=== PATIENT | male | born 1975 | race Caucasian/White ===

== ENCOUNTER 2024-01-31 05:24 | Emergency (ER) | payer BC, SELFPAY ==
--- NOTE | ~2024-01-31 | CT_ITS ---
EXAMINATION: CT abdomen pelvis wo con DATE: 01/31/2024 06:52 INDICATION: Right flank pain. TECHNIQUE: Computed tomography (CT) of the abdomen and pelvis was performed without intravenous contr ast. Automated exposure control and iterative reconstruction technique were employed. The dose-length product was 503.05 mGy-cm. COMPARISON: CT abdomen and pelvis 07/26/2012 FINDINGS: The visualized portions of the lung bases demonstrate mild atelectasis. No pleural effusion . The heart size is normal. There are coronary artery calcifications. No pericardial effusion. The li anette, gallbladder, spleen, pancreas, adrenal glands, and left kidney are normal. There is a 2 mm stone in right kidney. There is mild right hydronephrosis and proximal hydroureter. There is a 3 mm stone in proximal right ureter. The prostate is moderately enlarged. There is diverticulosis of the colon w ithout evidence of diverticulitis. There are no dilated loops of bowel. The appendix is normal. There is a small sliding hiatal hernia. There are no pathologically enlarged lymph nodes. There is no free intraperitoneal fluid. There is severe lower lumbar spondylosis. IMPRESSION: 1. 3 mm stone in proximal right ureter with mild right hydronephrosis and proximal hydroureter. 2. 2 mm nonobstructing right kidney stone. Reviewed, dictated and finalized at location A. IMPRESSION: 1. 3 mm stone in proximal right ureter with mild right hydronephrosis and proxi mal hydroureter. 2. 2 mm nonobstructing right kidney stone.
[2024-01-31 05:26] VITALS: BP 165/94; PULSE 59; RESP 20; TEMP 36.4; O2SAT 100
[2024-01-31 06:16] LABS: Basophils Percent Auto 0.5 % (0.2-1.2); Eosinophils Absolute Auto 0.5 K/mm3 (0-0.3); Eosinophils Percent Auto 6.3 % (0-4.4); Hematocrit 45.2 % (42.0-52.0); Hemoglobin 15.6 g/dL (14.0-18.0); Immature Granulocyte Absolute 0.02 K/mm3 (0.00-0.031); Immature Granulocyte Percent A 0.2 % (0-0.5); Lymphocytes Absolute Auto 2.01 K/mm3 (0.9-3.2); Lymphocytes Percent Auto 23.5 % (18.3-44.2); Mean Corpuscular HGB Conc 34.5 g/dl (32-36); Mean Corpuscular Volume 89.9 fl (80-100); Mean Platelet Volume 9.6 fl (7.4-10.4); Monocytes Absolute Auto 0.8 K/mm3 (0.1-0.6); Monocytes Percent Auto 8.8 % (2.6-8.5); Neutrophils Absolute Auto 5.2 K/mm3 (1.3-6.7); Neutrophils Percent Auto 60.7 % (45.5-73.1); Platelet Count Result 219 k/mm3 (150-375); Red Blood Count 5.03 M/mm3 (4.6-6.20); Red Cell Distribution Width 13.1 % (11.5-14.5); White Blood Count 8.6 K/mm3 (4.5-10.0)
[2024-01-31 06:18] VITALS: O2SAT 100
[2024-01-31 06:28] LABS: Alanine Aminotransferase 27 U/L (6-50); Albumin Level 4.7 g/dL (3.5-5.1); Alkaline Phosphatase 77 U/L (38-126); Anion Gap 12 mmol/L (4-12); Aspartate Amino Transferase 23 U/L (17-59); Bilirubin,Total 0.6 mg/dL (0.2-1.3); Blood Urea Nitrogen 16 mg/dL (9-20); Calcium 9.4 mg/dL (8.4-10.2); Carbon Dioxide 22 mmol/L (22-30); Chloride 103 mmol/L (98-107); Estimated CRCL calculation 89 ml/min; Estimated Glomerular Filt Rate > 60; Glucose 145 mg/dL (65-110); Lipase 115 U/L (23-300); Sodium 137 mmol/L (137-145)
[2024-01-31 06:30] VITALS: O2SAT 100
[2024-01-31 06:31] VITALS: BP 172/109; O2SAT 100
[2024-01-31] MEDS: ONDANSETRON INJ 4 MG/2 ML VIAL IV PUSH ×2 (06:42→07:06)
[2024-01-31] MEDS: SODIUM CHLORIDE 0.9% IV 1,000 ML 999 ML IV CONT (06:42)
[2024-01-31] MEDS: MORPHINE SULFATE (*CRX) 4 MG/ML INJ IV PUSH (06:42)
[2024-01-31 06:45] VITALS: O2SAT 98
--- NOTE | 2024-01-31 06:47 | PC.NURSE ---
Patient taken to CT via stretcher at this time.
--- NOTE | 2024-01-31 07:05 | PC.NURSE ---
Patient began vomiting in room. This RN informed provider and Dr Mendez gave verbal order for 4mg zofran.
[2024-01-31] MEDS: KETOROLAC 30 MG/ML VIAL (*BKC) IV PUSH (07:33)
[2024-01-31 08:27] LABS: Add Urine Microscopic? YES; Appearance Urine Clear (Clear); Bacteria Urine None Seen /hpf; Bilirubin Urine Negative (Negative); Blood Urine 2+ (Negative); Color Urine Yellow (Yellow); Glucose Urine UA Negative (Negative); Ketones Urine Negative (Negative); Leukocyte Esterase Ur Negative LEU/UL (Negative); Nitrate Urine Negative (Negative); Non Pathogenic Casts 0-2; Protein Urine Negative (Negative); RBC Urine 51-100 /hpf (0-2); Specific Grav Ur 1.013 (1.001-1.035); Squamous Epithelial Cell Urine None Seen /hpf (Few); Urobilinogen Urine 0.2 mg/dL (<2.0); WBC Urine 0-5 /hpf (0-3)
--- NOTE | 2024-01-31 08:50 | ED.GENADULT ---
HPI - General Adult General Chief complaint: Abdominal Pain Stated complaint: flank pain Time Seen by Provider: 01/31/24 06:59 History of Present Illness HPI narrative: Patient is a 48-year-old male who presents ER with sudden onset flank pain beginning this morning. Associated with nausea vomiting. Radiates into the right lower quadrant. No fevers or chills or sweats. No history of stone previously. No diarrhea. Cannot identify any alleviating factors. Related Data Allergies Allergy/AdvReac Type Severity Reaction Status Date / Time No Known Allergies Allergy Verified 01/31/24 06:22 Review of Systems Review of Systems: All systems reviewed & are unremarkable except as noted in HPI and below Constitutional: Constitutional: Reports no additional constitutional complaints Cardiovascular: Cardiovascular: Reports no additional cardiovascular complaints Respiratory: Respiratory: Reports no additional respiratory complaints Gastrointestinal: Gastrointestinal: Reports abdominal pain, Denies diarrhea, Reports nausea and Reports vomiting Genitourinary: Genitourinary: Denies hematuria, Denies dysuria and Denies urinary frequency PMFSH Past Medical History Medical History (Updated 01/31/24 @ 08:56 by Noé Quintanilla MD) Hyperlipidemia Hypertension Family History Family History (Updated 01/26/16 @ 23:21 by DOCTOR UNKNOWN) Sibling Hypertension Family history of elevated blood lipids Father Patient's father is in good health Family history of colonic diverticulitis Mother Family history of elevated blood lipids Other Cerebrovascular accident Social History Social History Smoking status: Never smoker Alcohol intake: never Exam Narrative: GENERAL: Well-appearing, well-nourished, and in no acute distress. HEAD: Normocephalic, atraumatic. ENT: ucous membranes moist. CHEST: Clear to auscultation. No respiratory distress. HEART: Regular rate and rhythm. Normal peripheral pulses. ABDOMEN: Soft, nontender, nondistended, no CVA tenderness. EXTREMITIES: Normal range of motion. No edema. SKIN: Warm, dry, no rash. NEURO: Alert and oriented x3. PSYCH: Normal mood and affect. Course Vital Signs Vital signs: Vital Signs Temperature 97.5 F L 01/31/24 05:26 Pulse Rate 59 L 01/31/24 05:26 Respiratory Rate 20 01/31/24 05:26 Blood Pressure 165/94 H 01/31/24 05:26 Pulse Oximetry 100 01/31/24 05:26 Oxygen Delivery Room Air 01/31/24 05:26 Temperature 97.5 F L 01/31/24 05:26 Pulse Rate 59 L 01/31/24 05:26 Respiratory Rate 20 01/31/24 05:26 Blood Pressure 172/109 H 01/31/24 06:31 Pulse Oximetry 98 01/31/24 06:45 Oxygen Delivery Room Air 01/31/24 05:26 Medical Decision Making MDM Narrative Medical decision making narrative: -Course: Pain and nausea improved while in the ER. Hydrated. Discussed treatment plan. -Co-morbidities complicating care: Hypertension -Social determinants of health: None -External Chart Review: None -Hx from independent Sources: Patient -Independent interpretation of studies: Blood in urine but no infection. Renal function normal. Unremarkable CBC/CMP. CT scan with 3 mm right-sided ureteral stone. Should be able to pass. -Interventions: Toradol 30 mg IV, Zofran 8 mg IV, 1 L normal saline -Shared decision making / Disposition: Discharge home with supportive care including [place]/Zofran/Flomax. Referral to Urology. Urine strainer sent with the patient. Vital Signs Vital Signs: Vital Signs Temperature 97.5 F L 01/31/24 05:26 Pulse Rate 59 L 01/31/24 05:26 Respiratory Rate 20 01/31/24 05:26 Blood Pressure 165/94 H 01/31/24 05:26 Pulse Oximetry 100 01/31/24 05:26 Oxygen Delivery Room Air 01/31/24 05:26 Temperature 97.5 F L 01/31/24 05:26 Pulse Rate 59 L 01/31/24 05:26 Respiratory Rate 20 01/31/24 05:26 Blood Pressure 172/109 H 01/31/24 06:31 Pulse Oximetry 98 01/31/24 06:45 O
[2024-01-31 09:00] VITALS: BP 155/84; PULSE 88; RESP 16; O2SAT 99
== END 2024-01-31 10:05 | disposition home or self-care (01) ==
PROVIDERS: Emergency Medicine; Emergency Provider Emergency Medicine; PCP Student in an Organized Health Care Education/Training Program
DX: N13.2 Hydronephrosis with renal and ureteral calculous obstruction (principal); E78.5 Hyperlipidemia, unspecified; I10 Essential (primary) hypertension
CPT/HCPCS: 36415; 74176; 80053; 81001; 83690; 85025; 96361; 96374; 96375; 99284; J1885; J2270; J2405; J7030

== ENCOUNTER 2024-02-03 10:02 | Emergency (ER) | payer BC, SELFPAY ==
--- NOTE | ~2024-02-03 | XR_ITS ---
EXAMINATION: XR abdomen/kub 1V DATE: 02/03/2024 12:11 INDICATION: Abdominal pain. TECHNIQUE: A supine view of the abdomen on 2 radiographs was obtained. COMPARISON: CT abdomen and pelvis 01/31/2024 FINDINGS: There are no dilated loops of bowel. There is a 3 mm stone in distal right ureter. IMPRESSION: 1. 3 mm stone in distal right ureter. Reviewed, dictated and finalized at location A.
[2024-02-03 10:20] VITALS: BP 167/93; PULSE 82; RESP 16; TEMP 36.6; O2SAT 97
[2024-02-03 10:39] LABS: Basophils Percent Auto 0.2 % (0.2-1.2); Eosinophils Absolute Auto 0.2 K/mm3 (0-0.3); Eosinophils Percent Auto 2.1 % (0-4.4); Hematocrit 44.6 % (42.0-52.0); Hemoglobin 15.3 g/dL (14.0-18.0); Immature Granulocyte Absolute 0.03 K/mm3 (0.00-0.031); Immature Granulocyte Percent A 0.3 % (0-0.5); Lymphocytes Absolute Auto 1.49 K/mm3 (0.9-3.2); Lymphocytes Percent Auto 13.2 % (18.3-44.2); Mean Corpuscular HGB Conc 34.3 g/dl (32-36); Mean Corpuscular Hemoglobin 30.9 pg (26-34); Mean Corpuscular Volume 90.1 fl (80-100); Mean Platelet Volume 9.8 fl (7.4-10.4); Monocytes Absolute Auto 0.8 K/mm3 (0.1-0.6); Monocytes Percent Auto 6.9 % (2.6-8.5); Neutrophils Absolute Auto 8.7 K/mm3 (1.3-6.7); Neutrophils Percent Auto 77.3 % (45.5-73.1); Platelet Count Result 199 k/mm3 (150-375); Red Blood Count 4.95 M/mm3 (4.6-6.20); White Blood Count 11.3 K/mm3 (4.5-10.0)
[2024-02-03 10:52] LABS: Alanine Aminotransferase 27 U/L (6-50); Alkaline Phosphatase 65 U/L (38-126); Anion Gap 12 mmol/L (4-12); Aspartate Amino Transferase 29 U/L (17-59); Bilirubin,Total 1.1 mg/dL (0.2-1.3); Blood Urea Nitrogen 13 mg/dL (9-20); Calcium 9.2 mg/dL (8.4-10.2); Carbon Dioxide 27 mmol/L (22-30); Chloride 99 mmol/L (98-107); Estimated CRCL calculation 98 ml/min; Estimated Glomerular Filt Rate > 60; Glucose 100 mg/dL (65-110); Potassium 3.9 mmol/L (3.4-5.0); Sodium 138 mmol/L (137-145)
[2024-02-03 11:01] LABS: Add Urine Microscopic? YES; Appearance Urine Cloudy (Clear); Bacteria Urine None Seen /hpf; Bilirubin Urine Negative (Negative); Blood Urine 2+ (Negative); Color Urine Yellow (Yellow); Glucose Urine UA Negative (Negative); Ketones Urine 1+ mg/dL (Negative); Leukocyte Esterase Ur 2+ LEU/UL (Negative); Nitrate Urine Negative (Negative); Non Pathogenic Casts 0-2; Protein Urine Trace mg/dL (Negative); Specific Grav Ur 1.016 (1.001-1.035); Squamous Epithelial Cell Urine None Seen /hpf (Few); pH Urine 7.5 (5.0-9.0)
[2024-02-03 12:32] VITALS: BP 149/94; PULSE 73; RESP 20; O2SAT 95
--- NOTE | 2024-02-03 12:42 | ED.ABDPAIN ---
HPI - Abdominal Pain General Chief Complaint: Abdominal Pain Stated Complaint: kidney stones Time Seen by Provider: 02/03/24 11:39 History of Present Illness HPI narrative: 48-year-old male present to the emergency department for evaluation for persistent left flank pain. Patient was diagnosed with 3 mm kidney stone on Friday. Patient had been taking ibuprofen for pain control. Patient felt onset of chills last night and then woke up in the morning drenched in sweat suspect he had a fever that broke. Patient then had acute worsening of his left flank pain. Patient denies any pain with urination. Arrival to the emergency department patient is afebrile and states his pain is currently controlled. Related Data Allergies Allergy/AdvReac Type Severity Reaction Status Date / Time No Known Allergies Allergy Verified 01/31/24 06:22 Review of Systems Review of Systems: All systems reviewed & are unremarkable except as noted in HPI and below PMFSH Past Medical History Medical History (Updated 02/03/24 @ 14:05 by Ricki Dawson MD) Hyperlipidemia Hypertension Family History Family History (Updated 01/26/16 @ 23:21 by DOCTOR UNKNOWN) Sibling Hypertension Family history of elevated blood lipids Father Patient's father is in good health Family history of colonic diverticulitis Mother Family history of elevated blood lipids Other Cerebrovascular accident Social History Social History Smoking status: Never smoker Alcohol intake: never Exam Narrative: APPEARANCE: Well appearing, no pain, no distress, well-nourished. HEAD: normocephalic, atraumatic. EYES: PERRLA/EOMI, conjunctivae clear. NOSE: Normal no drainage EARS:TMS clear with good light reflex. THROAT: Pharynx clear, no exudate. NECK: Supple. No adenopathy, no masses. RESPIRATORY: Airway patent, respirations nonlabored. Clear to auscultation bilaterally, no rales, rhonchi, wheezing. CARDIOVASCULAR: Regular rate and rhythm without murmurs rubs or gallops. ABDOMINAL: Soft, nontender, nondistended, normal bowel sounds MUSCULOSKELETAL: Moves all extremities. Strength/ROM intact, No edema, No calf tenderness. NEURO: Alert. Cranial nerves II through XII intact. Grossly intact SKIN: Warm, dry. Normal Color Course Course Emergency Course: Patient was discharged home on antibiotics and encouraged close follow-up with Urology. Vital Signs Vital signs: Vital Signs Temperature 97.9 F 02/03/24 10:20 Pulse Rate 82 02/03/24 10:20 Respiratory Rate 16 02/03/24 10:20 Blood Pressure 167/93 H 02/03/24 10:20 Pulse Oximetry 97 02/03/24 10:20 Oxygen Delivery Room Air 02/03/24 10:20 Temperature 97.9 F 02/03/24 10:20 Pulse Rate 73 02/03/24 12:32 Respiratory Rate 20 02/03/24 12:32 Blood Pressure 149/94 H 02/03/24 12:32 Pulse Oximetry 95 02/03/24 12:32 Oxygen Delivery Room Air 02/03/24 10:20 MDM - Abdominal Pain MDM Narrative Medical decision making narrative: 48-year-old male presented emergency department for evaluation for subjective fever and left flank pain. Patient is afebrile but does have a leukocytosis of 11.3 with a stable hemoglobin of 15.3. Patient has no change in his creatinine. UA does show leuk esterase positive with 6-10 white blood cells with no bacteria. X-ray does show presence of the 3 mm stone in the distal right ureter. Discussed the case with Urology and they were comfortable with the patient being discharged home says he is afebrile with only a minor leukocytosis and no significant evidence of urinary tract infection, urine culture was ordered and patient was started on Rocephin and Keflex for home. Differential Diagnosis Differential diagnosis: Likely abdominal pain, calculus of kidney and other Lab Data Attestation: I reviewed the patient's lab results. 02/03/24 10:33 02/03/24 10:33 Labs: Lab Results 02/03/24 02/03/24 Range/Units 10:33
== END 2024-02-03 14:27 | disposition home or self-care (01) ==
PROVIDERS: Emergency Provider Emergency Medicine; PCP Student in an Organized Health Care Education/Training Program
DX: N20.1 Calculus of ureter (principal); E78.5 Hyperlipidemia, unspecified; I10 Essential (primary) hypertension
CPT/HCPCS: 36415; 74018; 80053; 81001; 85025; 87086; 96365; 99284; J0696